=== PATIENT | male | born 1985 | race Caucasian/White ===

== ENCOUNTER 2020-09-03 00:33 | Emergency (ER) | payer BC ==
[~2020-09-03] VITALS: Ht 172.7 cm; Wt 88.5 kg
[2020-09-03 00:40] VITALS: BP 139/71
--- NOTE | 2020-09-03 00:45 | NUR ---
triaged and waiting in ER lobby
--- NOTE | 2020-09-03 00:52 | NUR ---
LABS DRAWN IN TRIAGE BY COMB FIXER. PATIENT AMBUALTED TO LOBBY WITH STEADY GAIT.
[2020-09-03 01:02] LABS: BASOPHILS % (AUTO) 0.3 % (0.0-2.0); EOSINOPHILS # (AUTO) 0.2 K/uL (0-0.4); EOSINOPHILS % (AUTO) 1.6 % (0.0-4.0); HEMATOCRIT 42.4 % (36-52); HEMOGLOBIN 14.2 g/dL (12.0-18.0); LYMPHOCYTES # (AUTO) 1.9 K/uL (2.0-11.5); LYMPHOCYTES % (AUTO) 12.7 % (20.5-51.1); MEAN CORPUSCULAR HEMOGLOBIN 30 pg (27-31); MEAN CORPUSCULAR HGB CONC 33 g/dL (33-37); MONOCYTES # (AUTO) 0.8 K/uL (0.8-1.0); MONOCYTES % (AUTO) 5.3 % (1.7-9.3); NEUTROPHILS # (AUTO) 11.7 K/uL (1.8-7.7); NEUTROPHILS % (AUTO) 80.1 % (42.2-75.2); PLATELET COUNT (AUTO) 263 K/uL (140-450); RED BLOOD CELL COUNT(AUTO) 4.76 MIL/uL (4.20-6.10); RED CELL DISTRIBUTION WIDTH 13.2 % (11.6-13.7); WHITE BLOOD COUNT (AUTO) 14.6 K/uL (4.8-10.8)
--- NOTE | 2020-09-03 01:15 | NUR ---
Pt ambulated to ER bed 4 w/ steady gait.
[2020-09-03 01:24] LABS: ANION GAP 16.6 (8-16); CARBON DIOXIDE 27.4 mmol/L (21-32); CREATININE 1.2 mg/dL (0.6-1.3)
[2020-09-03 01:30] LABS: ALBUMIN 3.9 g/dL (3.4-5.0); TOTAL BILIRUBIN 0.3 mg/dL (0.0-1.0)
--- NOTE | 2020-09-03 01:52 | NUR ---
36/M BIB self C/O RLQ abd pain x 3 hours with nausea. Pt describes pain as non-radiating, sharp, with a scale of 10/10. Pt denies any vomiting, fever, diarrhea, painful urination. no hx nkda
[2020-09-03] MEDS ORDERED: NACL 0.9% 1,000 ML IV ONE ×3 (02:10→04:05)
[2020-09-03] MEDS ORDERED: MORPHINE SULFATE 4 MG/ML SYR IVP ONE (02:10)
[2020-09-03] MEDS ORDERED: ONDANSETRON 4 MG/2 ML VIAL IVP ONE (02:10)
[2020-09-03 02:44] LABS: APPEARANCE,URINE CLEAR (CLEAR); BILIRUBIN,URINE NEGATIVE (NEGATIVE); BLOOD, URINE TRACE-I (NEGATIVE); COLOR,URINE YELLOW (YELLOW); LEUKOCYTE ESTERASE ,URINE NEGATIVE (NEGATIVE); NITRITE, URINE NEGATIVE (NEGATIVE); PH,URINE 6.5 (5.0-9.0); UGLUCOSE NEGATIVE (NEGATIVE)
[2020-09-03 03:01] LABS: WBC,URINE 0-5 /HPF (0-5)
--- NOTE | 2020-09-03 04:00 | NUR ---
PT ASLEEP. PT NOT IN DISTRESS. PT STATES TOLERABLE PAIN AT THIS TIME. NO REQUESTS MADE. PT KEPT COMFORTABLE. WILL CONTINUE TO MONITOR.
[2020-09-03] MEDS ORDERED: TAMSULOSIN 0.4 MG CAP PO STA ×2 (04:01→04:05)
[2020-09-03] MEDS ORDERED: KETOROLAC 30 MG/ML VIAL IVP ONE ×2 (04:05)
[2020-09-03] MEDS ORDERED: cefTRIAXone 1,000 MG VIAL ONE (04:16)
[2020-09-03] MEDS ORDERED: CEPH500C16 PO (05:10)
[2020-09-03] MEDS ORDERED: TAMS0.4C97 PO (05:10)
[2020-09-03] MEDS ORDERED: IBUP-2213 PO (05:10)
[2020-09-03 05:24] VITALS: BP 139/71
--- NOTE | 2020-09-03 05:24 | NUR ---
Patient discharged with v/s stable. Written and verbal after care instructions given and explained. Patient alert, oriented and verbalized understanding of instructions. Ambulatory with steady gait. All questions addressed prior to discharge. ID band removed. Patient advised to follow up with PMD. Rx of KEFLEX, IBUPROFEN, TAMSULOSIN given. Patient educated on indication of medication including possible reaction and side effects. Opportunity to ask questions provided and answered.
== END 2020-09-03 05:24 | disposition home or self-care (01) ==
LOC: MED 00:33
DX: N20.0 Calculus of kidney (principal); N39.0 Urinary tract infection, site not specified
CPT/HCPCS: 36415; 74176; 80053; 81001; 82150; 83690; 85025; 96361; 96365; 96375; 99284; J0696; J1885; J2270; J2405; J7030